=== PATIENT | male | born 1990 | race Two or more races ===

== ENCOUNTER 2019-06-13 08:36 | Emergency (ER) | payer OTHER ==
[~2019-06-13] VITALS: Ht 175.3 cm; Wt 78.9 kg
[2019-06-13 08:38] VITALS: BP 107/64
--- NOTE | 2019-06-13 09:23 | NUR ---
Patient discharged in custody of Officer Raul [id number] and Fransico in stable condition. Written and verbal after care instructions given.
== END 2019-06-13 09:22 ==
LOC: ER 08:37
DX: R05 Cough (principal); R09.81 Nasal congestion